=== PATIENT | male | born 1935 | race Caucasian/White ===

== ENCOUNTER 2017-05-17 14:53 | Emergency (ER) | payer MEDICARE, MEDICAID ==
[~2017-05-17] VITALS: Ht 177.8 cm; Wt 127.3 kg
[2017-05-17 15:09] VITALS: BP 163/82; PULSE 76; RESP 16; O2SAT 98
[2017-05-17 15:36] VITALS: BP 174/70; PULSE 71; RESP 19; O2SAT 95
--- NOTE | 2017-05-17 15:48 | ED.REPORT ---
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 He was sent to [facility] from the [place], where his BP was 191/90. At home, his BP has been around 165/60. He is otherwise asymptomatic. He denies abdominal pain, chest pain, shortness of breath, headache, vision change, and unilateral weakness. Nursing Notes Stated Complaint: HIGH B.P. Chief Complaint: General Complaint Nursing Notes Reviewed: Yes Allergies: Coded Allergies: No Known Allergies (Unverified , 05/17/17) Scheduled Lisinopril (Lisinopril) 20 Mg Tablet 20 MG PO DAILY General Time Seen by MD: 16:31 Chief Complaint Other (hypertension) Hx Obtained From: Patient Arrived By: Walk-in Sudden in Onset?: Yes Onset Occurred: 3 days ago Symptom Duration: Since onset Severity: Current: No pain currently Severity: Maximum: No pain Recent Healthcare: No recent doctor visit Past Medical History Past Medical History Notes: Manager Of Care: Dr. 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 Smoking History Unknown if Ever Smoker Social History [place] resident Other Social History: Good social support Ambulatory Status Independent Review of Systems Reports: hypertension Full Review of Systems Constitutional: Denies: Fever Eyes: Denies: Blurred bilateral Respiratory: Denies: Shortness of breath Cardiovascular: Denies: Chest pain GI: Denies: Abdominal pain, Hematemesis, Hematochezia, Melena Skin: Denies Rash Allergy / Immune: Denies: Itching Neurologic: Denies: Headache, Vision change, Weakness (unilateral) Complete sys rev & neg: except as marked. Physical Exam Nursing note and vitals reviewed. Constitutional: Well-developed, well-nourished. Not diaphoretic. Head: Normocephalic and atraumatic. Mouth/Throat: Oropharynx is clear and moist. No oropharyngeal exudate. Eyes: EOM are normal. Pupils are equal, round, and reactive to light. Neck: Supple, no tracheal deviation. Cardiovascular: Normal rate, irregular rhythm. Equal and intact distal pulses throughout. Mechanical click on cardiac exam. Pulmonary/Chest: Effort normal and breath sounds normal. No respiratory distress. Abdominal: Soft. No distension. There is no tenderness, rebound, or guarding. Bowel sounds present. Musculoskeletal: Range of motion grossly intact, moving all extremities. No edema or tenderness appreciated. Neurological: AOx3. Grossly nonfocal exam. Strength and sensation intact and equal to bilateral upper and lower extremities. Normal finger to nose testing. Skin: Warm and dry, no rashes or pallor appreciated. Psychiatric: Appropriate mood and affect. Behavior appears normal. Vital Signs Vital Signs Date Time Temp Pulse Resp B/P Pulse Ox O2 Delivery O2 Flow Rate FiO2 05/17/17 18:39 36.8 64 21 160/74 95 Room Air 05/17/17 18:27 64 21 160/74 95 Room Air 05/17/17 15:36 36.8 71 19 174/70 95 Room Air 05/17/17 15:09 36.9 76 16 163/82 98 Room Air Interpretation & Diagnostics Lab Results Interpretation Test 05/17/17 17:47 Urine Color Yellow (YELLOW) Urine Appearance Clear (CLEAR,HAZY) Urine pH 5.0 (5.0-8.0) Urine Specific [place] 1.010 (1.003-1.035) Urine Protein Negativemg/dL (NEG,TRACE) Urine Glucose (UA) Negativemg/dL (NEGATIVE) Urine Ketones Negativemg/dL (NEGATIVE) Urine Occult Blood Negative (NEGATIVE) Urine Nitrite Negative (NEGATIVE) Urine Bilirubin Negative (NEGATIVE) Urine Urobilinogen Normalmg/dL (NORMAL) Urine Leukocyte Esterase Negative (NEGATIVE) Urine RBC 0-2/hpf (0-2) Urine WBC 0-5/hpf (0-5) Urine Epithelial Cells Moderate/hpf (NONE-MOD) Urine Crystals None seen (NONE SEEN) Urine Bacteria None/hpf (NONE-FEW) Urine Hyaline Casts None/lpf (NONE) Urine Granular Casts None seen (NONE SEEN) Urine Waxy Casts None seen (NONE SEEN) Urine Red Blood Cell Casts None seen (NONE SEEN) Urine White Blood Cell Casts None seen (NONE SEEN) Urine Mucus None seen (None Seen) Urine Trichomonas None seen (NONE SEEN) Urine Yeast None (NONE SEEN) Urinalysis Comment None Urine Culture Reflexed Not indicated Re-Eval/Medical Decision Med Decision/Clinical Course 82-year-old male presenting to the ED for evaluation after his blood pressure was noted to be elevated at the [facility] earlier today. He has no symptoms whatsoever , nor has he had any symptoms recently. No chest pain, no shortness of breath, no abdominal pain. He does have a history of an ascending aortic aneurysm that they have been monitoring, however this has been yearly according to the patient. Given that he is having no symptoms at all right now and he recently decreased his blood pressure medication, I contacted the on-call solar sales manager that is covering for his solar sales manager. He does not recommend any further workup here in the ED, but recommends returning to previous antihypertensive dose. I will increase his low central back to 20 mg daily from 10 mg previously. I discussed with him at length that he should return to the emergency department immediately if he develops even minor symptoms. I explained that while we could perform a CT scan, I did not think it was warranted at this time. He agreed with this and did not want this test performed right now either. Plan discharge home with very careful return precautions, PCP and cardiology follow-up in the next several days. Patient agreeable to the plan as stated, no further questions. Time of Eval: 17:13 Re-Evaluation/Progress Note: Discussed plan to consult pt's solar sales manager. Time of Eval: 18:01 Re-Evaluation/Progress Note: Rechecked pt. Discussed diagnosis and plan to discharge. Pt understands and agrees with the plan. F/U instruction and RTER warning given. All questions addressed. Consultation : Referral / Consult Name: Adriel Gonzlaez MD Consulted With: Cardiology Call Returned at: 17:40 Carpet Floor Layer Apprentice: Will see in office, Agrees with eval, Agrees with plan, Accepts admit Note: Dr. Gonzalez agrees no further intervention is needed at this time. There is no scan needed given the pt has no symptoms. He recommends increasing his BP medications and following up with Dr. Moran. Counseled Regarding: Diagnosis, Lab results, Need for follow-up, When/why to return to ED Discharge & Departure Primary Impression: Hypertension Hypertension type: unspecified secondary hypertension Qualified Code: I15.9 - Secondary hypertension, unspecified Disposition: Home Discharge Condition All VS Reviewed: Yes Condition: Stable Patient Instructions: Hypertension (ED), Thoracic Aortic Aneurysm (DC), Thoracic Aortic Aneurysm (ED) Additional Instructions: Thank you for allowing us to be a part of your care today. You have been seen in the emergency department for evaluation of hypertension. As we discussed, since you are not having any symptoms at this time, there is no need for further workup in the emergency department today. I discussed your case with Dr. Gonzalez, who is a colleague of Dr. Moran, and he recommended that we increase your blood pressure medication. Please take the medication as prescribed. We are increasing your lisinopril dose back to 20 mg once daily, which is what you were on before. Stop taking the 10 mg dose and start taking the 20 mg dose. Return to the ED immediately if you develop any symptoms whatsoever, including chest pain, shortness of breath, headache, vision changes, abdominal pain, weakness, numbness or tingling, or if there is anything else of concern to you. Please call the offices of Dr. Moran and Dr. Ryan tomorrow to make an urgent appointment to discuss today's visit and the medication changes. Referrals: Huang Paz MD (Family) CLAUDIA MORAN MD, Albert MD Scribe Attestation Portions of this note were transcribed by Vickie Saldaña. I,, personally performed the history,physical exam and medical decision-making;I reviewed and confirmed the accuracy of the information in the transcribed note. Signed by Larry Teixeira. 05/17/17 copies to: CLAUDIA MORAN MD; Dave Ryan MD; Huang Paz MD, William B MD May 17, 2017 15:48 Vickie Saldaña May 17, 2017 17:13
[2017-05-17 18:05] LABS: APPEARANCE,URINE CLEAR (CLEAR,HAZY); COLOR,URINE YELLOW (YELLOW); OCCULT BLOOD,URINE NEGATIVE (NEGATIVE); UROBILINOGEN,URINE NORMAL (NORMAL)
[2017-05-17] MEDS ORDERED: LISI-567 PO (18:20)
[2017-05-17 18:27] VITALS: BP 160/74; PULSE 64; RESP 21; O2SAT 95
[2017-05-17 18:39] VITALS: BP 160/74; PULSE 64; RESP 21; O2SAT 95
== END 2017-05-17 18:40 | disposition home or self-care (01) ==
LOC: SED 14:53
DX: I15.9 Secondary hypertension, unspecified (principal); E11.22 Type 2 diabetes mellitus with diabetic chronic kidney disease; N18.3 Chronic kidney disease, stage 3 (moderate); I48.91 Unspecified atrial fibrillation; E78.5 Hyperlipidemia, unspecified; Z95.4 Presence of other heart-valve replacement